=== PATIENT | female | born 1990 | race Hispanic/Latino ===

== ENCOUNTER 2022-01-08 20:57 | Inpatient (IN) | payer BC, OTHER ==
[~2022-01-08] VITALS: Ht 154.9 cm; Wt 107.0 kg
[2022-01-08 22:26] LABS: BASOPHILS % (AUTO) 0.6 % (0.0-5.0); EOSINOPHILS % (AUTO) 1.3 % (0.0-8.0); HEMATOCRIT 24.1 % (36-48); MEAN CORPUSCULAR HEMOGLOBIN 20.2 pg (27.0-33.0); MEAN CORPUSCULAR VOLUME 69.5 fL (79-99); MONOCYTES % (AUTO) 6.1 % (3.0-13.0); NEUTROPHILS % (AUTO) 66.5 % (40.0-77.0); PLATELET COUNT (AUTO) 241 K/uL (130-400); RED BLOOD CELL COUNT(AUTO) 3.47 MIL/uL (4.00-5.50); RED CELL DISTRIBUTION WIDTH 17.7 % (11.0-15.5); WHITE BLOOD COUNT (AUTO) 8.2 K/uL (4.8-10.8)
[2022-01-08 22:29] LABS: APPEARANCE,URINE CLOUDY (CLEAR); BILIRUBIN,URINE NEGATIVE (NEGATIVE); GLUCOSE, URINE (UA) NEGATIVE (NEGATIVE); KETONES,URINE NEGATIVE (NEGATIVE); LEUKOCYTE ESTERASE ,URINE 25 Leu/uL (NEGATIVE); NITRATE,URINE NEGATIVE (NEGATIVE); OCCULT BLOOD,URINE LARGE (NEGATIVE); PH,URINE 5.5 (5.0-8.0); PROTEIN,URINE 20 mg/dL (NEGATIVE); UROBILINOGEN,URINE 0.2 mg/dL (0.2-1.0)
[2022-01-08 22:33] LABS: COLOR,URINE DARK YELLOW (YELLOW)
[2022-01-08 22:34] LABS: CREATININE 0.8 mg/dL (0.5-1.5); POTASSIUM 3.2 mmol/L (3.5-5.1)
[2022-01-08 22:38] LABS: BACTERIA,URINE FEW /HPF (None Seen); MUCUS,URINE RARE LPF (None Seen); RBC,URINE TNTC /HPF (0-1); SQUAMOUS EPITHELIAL CELL,UR FEW /HPF (0-2)
[2022-01-08 22:39] LABS: ALBUMIN 3.2 g/dL (3.5-5.0); TOTAL PROTEIN, SERUM 7.5 g/dL (6.0-8.3)
[2022-01-08 22:51] LABS: HCG,QUALITATIVE URINE NEGATIVE (NEGATIVE)
[2022-01-09] VITALS (9 sets, daily range): BP systolic 109–127; BP diastolic 67–79
[2022-01-09] MEDS ORDERED: KCL 20 MEQ ERTAB PO ONE (01:30)
[2022-01-09] MEDS ORDERED: PHARMACY COMMUNICATION MISC SCH (04:30)
[2022-01-09] MEDS ORDERED: 0.9%NACL 1000ML 1,000 ML IV ONE (04:30)
[2022-01-09] MEDS ORDERED: MEDROXYPROGESTERONE ACET 5 MG TAB PO SCH (08:30)
[2022-01-09 11:59] LABS: HEMATOCRIT 26.1 % (36-48)
[2022-01-09] MEDS ORDERED: ONDANSETRON 4MG INJ IVP SCH (13:30)
[2022-01-09] MEDS ORDERED: ACETAMINOPHEN 500 MG TABLET PO SCH (13:30)
[2022-01-09 16:07] LABS: HEMATOCRIT 33.5 % (36-48)
== END 2022-01-09 17:25 | disposition home or self-care (01) | DRG 812 ==
LOC: EDH 20:57 → EDHIP 20:58 → WSH 01-09 03:46 → UNDODISIN 01-09 17:25
PROVIDERS: ADMIT Internal Medicine; ATTEND Internal Medicine
PROC: 30233N1 Transfusion of Nonautologous Red Blood Cells into Peripheral Vein, Percutaneous Approach (ICD-10-PCS; principal; 2022-01-09)
DX: D64.9 Anemia, unspecified (principal); N93.8 Other specified abnormal uterine and vaginal bleeding
CPT/HCPCS: 36415; 36430; 76856; 80053; 81001; 81025; 85014; 85018; 85025; 86850; 86900; 86901; 86923; 87088; G0378; J2405; J7030; P9016

== ENCOUNTER 2024-06-29 23:30 | Emergency (ER) | payer SELFPAY ==
[~2024-06-29] VITALS: Ht 154.9 cm; Wt 93.0 kg
[2024-06-29 23:31] VITALS: BP 144/101; PULSE 82; RESP 20; TEMP 97.2
[2024-06-29 23:58] LABS: SARS-CoV-2, RNA, NAAT NEGATIVE SARS CoV-2 (NEGATIVE)
[2024-06-30 00:05] LABS: INFLUENZA TYPE A Negative For Type A (NEGATIVE); INFLUENZA TYPE B Negative For Type B (NEGATIVE)
[2024-06-30 00:11] LABS: RAPID GROUP A STREP positive (NEGATIVE)
[2024-06-30] MEDS ORDERED: METH4TAB3 PO (00:29)
[2024-06-30] MEDS ORDERED: AMOX1TAB16 PO (00:29)
[2024-06-30] MEDS ORDERED: ONDA-243 PO (00:29)
--- NOTE | 2024-06-30 00:30 | ERN ---
General Chief Complaint: Headache Stated Complaint: C/O HEADACHE ONSET TODAY WITH N X V Time Seen by MD: 23:32 Time Seen by Midlevel: 23:32 Source: patient History of Present Illness Initial Comments Patient is a 34-year-old female with no significant past medical history presenting to the emergency department for evaluation of flu-like symptoms. Symptoms consist of a headache, nausea, and a sore throat. Denies any other symptoms Allergies: Coded Allergies: No Known Drug Allergies (Unverified Allergy, Unknown, 01/08/22) Home Meds Active Scripts Ondansetron (Ondansetron Odt) 4 Mg Tab.rapdis, 4 MG PO BID for 7 Days, #14 TAB Prov:KIET WILKERSON 06/30/24 Amoxicillin/Potassium Clav (Amox Tr-K Clv 875-125 mg Tab) 875 Mg-125 Mg Tablet, 1 EACH PO BID for 5 Days, #10 TAB 0 Refills Prov:KIET WILKERSON 06/30/24 Methylprednisolone (Medrol) 4 Mg Tab.ds.pk, 1 TAB PO AD for 6 Days, #21 TAB 0 Refills 6 on day 1 then reduce by one tablet daily until gone Prov:KIET WILKERSON 06/30/24 Past Medical History Past Medical History: No Pertinent History Medical History Other: DENIES MEDICAL HX Past Surgical History: None Social History Social History: Negative Female( History) LMP: May 27, 2024 ROS Dictation CONSTITUTIONAL: Negative except for HPI HEAD/FACE: Negative except for HPI EENT: Negative except for HPI RESPIRATORY: Negative except for HPI GASTROINTESTINAL/ABDOMINAL: Negative except for HPI GENITOURINARY: Negative except for HPI MUSCULOSKELETAL: Negative except for HPI INTEGUMENTARY: Negative except for HPI NEUROLOGICAL/PSYCH: Negative except for HPI HEMATOLOGIC/LYMPHATIC: Negative except for HPI All Systems Negative, Except as noted above. 13 point review of systems assessed and all negative except for above. Physical Exam Physical Exam Dictation Vital Signs reviewed General Appearance: Alert, oriented x 3, no acute distress, well developed, nourished. Head and Face: non-traumatic. Eyes: PERRL, pink conjunctivas, eyelid no trauma, anterior chamber with arcus senilis. Ears: Pinnas intact and no signs of trauma or erythema ear canals clear and no discharge TM no erythema Nose: No discharge, no bleeding. Oropharynx: Mouth normal, tongue pink, Erythema to the posterior oropharynx, bilateral tonsillar exudates, no abscesses noted, mucous membrane moist Neck: Supple, non-tender, no thyromegaly, no masses, no JVD, no bruits Breast:Deferred Chest:No tenderness, no crepitus, no paradoxical movement, no retractions Lungs:Clear, well-ventilated, symmetric, no rales, no wheezing, no rhonchi, no stridor, good breath sounds bilaterally Heart: Regular rate, regular rhythm, no murmur, no gallops Vascular: no peripheral edema, Abdomen: Soft, positive bowel sounds, nondistended, no guarding, nontender, no rebound, no masses no hepatomegaly, no splenomegaly, no Hernandez's sign, no hernias. Rectal: Deferred Genital: Deferred Neurological: Normal speech, motor function intact, sensory function intact Musculoskeletal: Neck nontender, full range of motion, back nontender, full range of motion, Extremities: nontender, full range of motion Skin: Color pink, dry, no turgor, no rash, no lacerations, no abrasions, no contusions. Lymphatic: Deferred Results Laboratory and Microbiology Lab and Micro Result Laboratory Tests Test 06/29/24 23:25 Influenza Type A Antigen Negative For Type A Influenza Type B Antigen Negative For Type B SARS-CoV-2, RNA, NAAT NEGATIVE SARS CoV-2 Group A Streptococcus Rapid positive (NEGATIVE) *A Labs Reviewed?: Yes MDM MDM: Differential diagnosis: Viral syndrome, upper respiratory infection, strep There are no social concerns with this patient. Prescription drug management Prescriptions will include: Amoxicillin Medical management and examination interpretation discussions were had by me with other qualified healthcare professionals as indicated for the patient's care. ED Course Orders Procedure Category Date Status Time Covid Rna Naat LAB 06/29/24 Complete 23:36 Influenza Type A & B, LAB 06/29/24 Complete Rapid 23:36 Rapid (Group A Strep) LAB 06/29/24 Complete 23:36 Hydrocodone/Apap PHA 06/30/24 Complete 5/325 ([place]mb[place] 5/325mg) 00:30 Ondansetron Odt 4mg PHA 06/30/24 Complete Tab (Zofran 4mg Odt) 00:30 Current Medications Medications (Trade) Dose Ordered Sig/Ayana Route PRN Reason Start Time Stop Time Status Last Admin Dose Admin Acetaminophen/ Hydrocodone Bitart (NORco 5/325MG) 1 tab ONCE ONCE PO 06/30/24 00:30 06/30/24 00:32 DC 06/30/24 00:38 Ondansetron HCl (zoFRAN 4MG ODT) 4 mg ONCE ONCE SL 06/30/24 00:30 06/30/24 00:32 DC 06/30/24 00:37 Vital Signs Date Time Temp Pulse Resp B/P (MAP) Pulse Ox O2 Delivery O2 Flow Rate FiO2 06/29/24 23:31 97.2 82 20 144/101 97 Room Air DX & DISP Disposition: Discharge Departure Impression: Primary Impression: Strep pharyngitis Condition: Stable Scripts Ondansetron (Ondansetron Odt) 4 Mg Tab.rapdis 4 MG PO BID for 7 Days, #14 TAB Prov: KIET WILKERSON 06/30/24 Amoxicillin/Potassium Clav (Amox Tr-K Clv 875-125 mg Tab) 875 Mg-125 Mg Tablet 1 EACH PO BID for 5 Days, #10 TAB 0 Refills Prov: KIET WILKERSON 06/30/24 Methylprednisolone (Medrol) 4 Mg Tab.ds.pk 1 TAB PO AD for 6 Days, #21 TAB 0 Refills 6 on day 1 then reduce by one tablet daily until gone Prov: KIET WILKERSON 06/30/24 Referrals: SELF,REFERRAL (PCP) I have reviewed the case, and I agree with, Diagnosis and Plan I performed the substantive portion of the visit. I have reviewed and pers onally made and approve the management plan that is documented in the note by myself or the JOHN PAUL. I acknowledge for responsibility for the patient's management plan. KIET WILKERSON Jun 30, 2024 00:29
[2024-06-30] MEDS: ondanSETRON ODT 4MG TAB SL ONE (00:37)
[2024-06-30] MEDS: HYDROcodone/APAP 5/325 1 TAB TABLET PO ONE (00:38)
== END 2024-06-30 00:52 | disposition home or self-care (01) ==
LOC: EDH 23:30
DX: J02.0 Streptococcal pharyngitis (principal); Z20.822 Contact with and (suspected) exposure to COVID-19
CPT/HCPCS: 87635; 87804; 87880; 99283